=== PATIENT | female | born 1955 | race Caucasian/White ===

== ENCOUNTER 2017-04-23 09:27 | Emergency (ER) | payer OTHER, MEDICARE ==
[~2017-04-23] VITALS: Ht 157.5 cm; Wt 68.7 kg
[~2017-04-23 09:27] MED LIST: DOCU-246 PO; GABA400C PO
[2017-04-23 09:29] VITALS: BP 131/72
[2017-04-23] MEDS: ACETAMINOPHEN EXTRA STRENGTH 500 MG TAB PO ONE (09:57)
[2017-04-23] MEDS: IBUPROFEN 600 MG TAB PO ONE (09:57)
[2017-04-23 11:43] VITALS: BP 121/71
== END 2017-04-23 11:43 | disposition home or self-care (01) ==
LOC: MED 09:27
DX: S63.502A Unspecified sprain of left wrist, initial encounter (principal); R03.0 Elevated blood-pressure reading, without diagnosis of hypertension; Z79.899 Other long term (current) drug therapy; W18.39XA Other fall on same level, initial encounter; Y93.89 Activity, other specified; Y92.89 Other specified places as the place of occurrence of the external cause; Y99.8 Other external cause status
CPT/HCPCS: 73110; 73130; 99284